=== PATIENT | male | born 1975 | race Caucasian/White ===

== ENCOUNTER → 2017-03-01 | Outpatient (CLI) | payer OTHER ==
--- NOTE | ~2017-03-01 | MR188 ---
[facility] A Service of [facility] & [facility] RADIOLOGY TEXT RESULTS PATIENT: ZANE OLIVAS LOCATION: [facility] : 75 UNIT #: [id number] AGE: [address]: Thomas Gomez MD SEX: M ORDER DR: [id number] [place] [id number] O MR#: [id number] Acc #: [id number] NAME: ZANE OLIVAS : 1975 SEX: M STUDY DATE/TIME: 03/01/2017 13:13 UNIT: [facility] ROOM: STUDY DESCRIPTION: MR Wrist Wo Contrast Rt Attending Physician: Thomas Gomez M.D. Referring Physician: Thomas Gomez M.D. Ordering Physician: Thomas Gomez M.D. Primary Care Physician: Jennifer Segal M.D. MRI CENTER REPORT This report is preliminary unless electronic signature is present. EXAM MRI right wrist without contrast 03/01/2017 COMPARISON None. HISTORY Order states right wrist pain into the forearm. History sheet states [employer] worker status post injury 5 days ago - felt a pop. Increasing pain extending into the forearm, especially in the Gel-Cap marked area. Does repetitive work with hands all day. Body habitus necessitated use of the small flex coil rather than the dedicated knee coil. The marker is located just volar to the flexor carpi ulnaris at the level of the distal ulna. Radiocarpal alignment is normal. The scapholunate and lunate - triquetral ligaments are unremarkable. The triangular fibrocartilage complex is within normal limits. There is no marrow lesion, fracture, or bone contusion. No arthritic changes are demonstrated. There is tenosynovial inflammation of the flexor digitorum profundus muscle tendon complex, just proximal to the level of the carpal tunnel. The remainder of the flexor tendons are within normal limits. Carpal tunnel is unremarkable. The neurovascular bundles are normal. There is mild extensor carpi ulnaris tendinosis at the level of the distal ulna extending just distal to the level of the ulnar styloid. There is no marrow lesion or fracture. The neurovascular bundles are normal. [facility] A Service of [facility] RADIOLOGY TEXT RESULTS PATIENT: ZANE OLIVAS LOCATION: [facility] : 75 UNIT #: [id number] AGE: [address]: Thomas Gomez MD SEX: M ORDER DR: IMPRESSION 1. Mild flexor digitorum profundus tenosynovial inflammation just proximal to the carpal tunnel. 2. 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 3. The exam is otherwise normal. Dictated by... Felicity Andrews M.D. THIS IS AN ELECTRONICALLY VERIFIED REPORT Felicity Andrews M.D. at 03/02/2017 1:03 PM [facility] TD: 03/02/2017 12:31 JOB #: [id number] MRI CENTER REPORT Page 1 of 1
== END | disposition home or self-care (01) ==
LOC: SMRI 12:44
DX: M25.531 Pain in right wrist (principal); M79.631 Pain in right forearm; M65.9 Synovitis and tenosynovitis, unspecified; M77.8 Other enthesopathies, not elsewhere classified
CPT/HCPCS: 73221